=== PATIENT | female | born 1995 | race Caucasian/White ===

== ENCOUNTER 2017-05-22 11:27 | Emergency (ER) | payer SELFPAY ==
[~2017-05-22] VITALS: Ht 160 cm; Wt 68.0 kg
[2017-05-22 11:40] VITALS: BP 113/67
--- NOTE | 2017-05-22 12:07 | PHYS DOC ---
Past Medical History Past Medical History: No Pertinent History Past Surgical History: No Surgical History Alcohol Use: None Drug Use: None Adult General Chief Complaint Chief Complaint: OTHER COMPLAINTS HPI HPI Patient is a 21 year old F who presents with wanting her Mirena checked. Patient states that she's having some vaginal bleeding and concerned that her Mirena might be dislodged. Patient states she's having unprotected intercourse and is a chance she could be . Patient denies any fevers. Patient denies any nausea/vomiting/diarrhea. Patient denies any abdominal pain. Patient has no other complaints. Review of Systems Review of Systems GEN: Denies fevers, chills, sweats HEENT: Denies blurred vision, sore throat CV: Denies chest pain RESP: Denies shortness of air, cough GI: Denies n/v/d : Vaginal bleeding NEURO: Denies confusion, dizziness MSK: Denies weakness, joint pain/swelling Allergies Allergies Allergies Coded Allergies Type Severity Reaction Last Updated Verified No Known Drug Allergies 09/30/14 No Physical Exam Physical Exam GEN.: No apparent distress. Alert and oriented. HEENT: Head is normocephalic, atraumatic NECK: Supple. LUNGS: CTAB. HEART: RRR, S1, S2 present. Peripheral pulses intact ABDOMEN: Soft, nontender. Positive bowel sounds. EXTREMITIES: Without any cyanosis. NEUROLOGIC: Normal speech, normal tone PSYCHIATRIC: Normal affect, normal mood. SKIN: No ulcerations Current Patient Data Vital Signs Vital Signs Date Time Temp Pulse Resp B/P (MAP) Pulse Ox O2 Delivery O2 Flow Rate FiO2 05/22/17 11:40 98.1 111 18 97 Room Air 98.1 Lab Values Laboratory Tests Test 05/22/17 11:38 05/22/17 12:20 POC Urine HCG, Qualitative Hcg negative (Negative) Urine Collection Type Unknown Urine Color Yellow Urine Clarity Cloudy Urine pH 7.0 Urine Specific [place] 1.015 Urine Protein Negative mg/dL (NEG-TRACE) Urine Glucose (UA) Negative mg/dL (NEG) Urine Ketones (Stick) Negative mg/dL (NEG) Urine Blood Negative (NEG) Urine Nitrite Negative (NEG) Urine Bilirubin Negative (NEG) Urine Urobilinogen Dipstick 0.2 mg/dL (0.2 mg/dL) Urine Leukocyte Esterase Large (NEG) Urine RBC 0 /HPF (0-2) Urine WBC >40 /HPF (0-4) Urine Squamous Epithelial Cells Few /LPF Urine Bacteria Few /HPF (0-FEW) Urine Mucus Slight /LPF EKG EKG [] Radiology/Procedures Radiology/Procedures [] Course & Med Decision Making Course & Med Decision Making Pertinent Labs and Imaging studies reviewed. (See chart for details) ED course: 1155: Patient was seen and examined in the emergency room and I had a long discussion with the patient about evaluation of Mirena as an emergency room. Patient states that she's having vaginal bleeding which concerned her that her Mirena is dislodged. Explained to the patient we'll check her urine and check her for . 1244: Patient was reexamined and told that she had a UTI and will treat with antibiotics and was followed recommend she follow up with her MANAGER OF REVENUE for further evaluation and management of her Mirena. MDM: After reviewing the chart, CC/HPI/PMH, physical exam, [lab results], I do not believe the patient has emergent medical condition warranting further workup and /or admission at this time. Patient is stable for discharge. Recommended patient follow-up with MANAGER OF REVENUE for further evaluation of her Mirena and will treat her UTI with oral antibiotics. Additional verbal discharge instructions were provided to the patient and that if symptoms get worse or any new symptoms arise that are worrisome to the patient she is to return to the emergency room immediately [] Dragon Disclaimer Dragon Disclaimer This electronic medical record was generated, in whole or in part, using a voice recognition dictation system. Departure Departure Impression: Primary Impression: Urinary tract infection Disposition: HOME, SELF-CARE Condition: IMPROVED Referrals: NO PCP (PCP) Patient Instructions: Urinary Tract Infection, [id number] Additional Instructions: Please follow up with your AUDIO PRODUCTION INSTRUCTOR for further evaluation and management of your Mirena and please follow up with your family doctor next one to 2 days Scripts Sulfamethoxazole/Trimethoprim (BACTRIM DS TABLET) 1 Each Tablet 1 TAB PO BID for 5 Days, #10 TAB Prov: ROSS ASHLEY DO 05/22/17 ROSS ASHLEY DO May 22, 2017 12:07
[2017-05-22 12:30] LABS: BILIRUBIN,URINE NEGATIVE (NEG); GLUCOSE,URINE NEGATIVE (NEG); NITRITE,URINE NEGATIVE (NEG); PROTEIN,URINE NEGATIVE (NEG-TRACE); UROBILINOGEN,URINE 0.2 mg/dL (0.2 mg/dL)
[2017-05-22 12:40] LABS: BACTERIA,URINE FEW /HPF (0-FEW); RBC,URINE 0 /HPF (0-2); SQUAMOUS EPITHELIAL CELL,UR FEW /LPF; WBC,URINE >40 /HPF (0-4)
[2017-05-22] MEDS ORDERED: SULF1TAB24 PO (12:46)
== END 2017-05-22 12:59 | disposition home or self-care (01) ==
LOC: ER 11:27
DX: N39.0 Urinary tract infection, site not specified (principal); N93.9 Abnormal uterine and vaginal bleeding, unspecified
CPT/HCPCS: 81001; 81025; 87086; 99284

== ENCOUNTER 2018-04-16 16:48 | Emergency (ER) | payer SELFPAY ==
[2018-04-16 17:45] LABS: URINE HCG POC HCG NEGATIVE (Negative)
[2018-04-16 17:49] LABS: BILIRUBIN,URINE NEGATIVE (NEG); CLARITY,URINE CLEAR; COLOR,URINE YELLOW; GLUCOSE,URINE NEGATIVE (NEG); NITRITE,URINE NEGATIVE (NEG); PH,URINE 5.5; PROTEIN,URINE NEGATIVE (NEG-TRACE); UROBILINOGEN,URINE 0.2 mg/dL (0.2 mg/dL)
[2018-04-16 17:56] LABS: BACTERIA,URINE FEW /HPF (0-FEW); SQUAMOUS EPITHELIAL CELL,UR FEW /LPF
[2018-04-16 17:57] LABS: RBC,URINE 0 /HPF (0-2)
[2018-04-16] MEDS: cefTRIAXone IM 250 MG VIAL IM (19:05)
[2018-04-16] MEDS: AZITHROMYCIN 250 MG TABLET. PO (19:06)
[2018-04-20 15:27] LABS: CHLAMYDIA PROBE Negative (Negative); GC PROBE Negative (Negative)
== END 2018-04-16 19:10 | disposition home or self-care (01) ==
LOC: ER 16:48
DX: N76.0 Acute vaginitis (principal); B96.89 Other specified bacterial agents as the cause of diseases classified elsewhere; Z91.018 Allergy to other foods
CPT/HCPCS: 81001; 81025; 87491; 87591; 96372; 99284; J0696; Q0111; Q0144

== ENCOUNTER 2018-11-11 16:44 | Emergency (ER) | payer BC ==
[~2018-11-11] VITALS: Ht 160 cm; Wt 74.8 kg
[~2018-11-11 16:44] MED LIST: METR500T PO; SULF1TAB24 PO
[2018-11-11 18:00] VITALS: BP 107/64
--- NOTE | 2018-11-11 18:20 | PHYS DOC ---
Past Medical History Past Medical History: No Pertinent History (RAMSES PENNY APRN) Past Surgical History: No Surgical History (RAMSES PENNY APRN) Alcohol Use: None Drug Use: None (RAMSES PENNY APRN) Adult General Chief Complaint Chief Complaint: SORE THROAT HPI HPI Patient is a 23 year old female who presents to the emergency room with complaints of a sore throat, nasal congestion, postnasal drainage, frequent throat clearing, and dry cough since yesterday. Patient denies any measured fever, rash, nausea, vomiting, diarrhea, abdominal pain, shortness of breath, or wheezing. Patient states she is a infrequent smoker. She denies any medical history. (RAMSES PENNY APRN) Review of Systems Review of Systems Constitutional: Denies fever or chills [] Eyes: Denies change in visual acuity, redness, or eye pain [] HENT: See history of present illness Respiratory: Denies wheezing or shortness of breath ; See HPI Cardiovascular: No additional information not addressed in HPI [] GI: Denies abdominal pain, nausea, vomiting, or diarrhea [] Musculoskeletal: Denies back pain or joint pain [] Integument: Denies rash or skin lesions [] Neurologic: Denies headache, focal weakness or sensory changes [] (RAMSES PENNY APRN) Allergies Allergies Allergies Coded Allergies Type Severity Reaction Last Updated Verified coconut Allergy Intermediate diarrhea 04/16/18 Yes (HOMER CASEY DO) Physical Exam Physical Exam Constitutional: Well developed, well nourished, no acute distress, non-toxic appearance. [] HENT: Normocephalic, atraumatic, bilateral external ears normal, bilateral TMs normal, cobblestone appearance of posterior pharynx without erythema, oropharynx moist, no oral exudates, erythema and edema of bilateral nasal turbinates. Eyes: conjunctiva normal, no discharge. [] Neck: Normal range of motion, no tenderness, supple, no stridor. [] Cardiovascular:Heart rate regular rhythm, no murmur [] Lungs & Thorax: Bilateral breath sounds clear to auscultation [] Skin: Warm, dry, no erythema, no rash. [] Extremities: No cyanosis, no clubbing, ROM intact Neurologic: Alert and oriented X 3, normal motor function, normal sensory function, no focal deficits noted. [] Psychologic: Affect normal, judgement normal, mood normal. [] (RAMSES PENNY APRN) Current Patient Data Vital Signs Vital Signs Date Time Temp Pulse Resp B/P (MAP) Pulse Ox O2 Delivery O2 Flow Rate FiO2 11/11/18 18:00 98.2 91 16 107/64 (78) 98 Room Air 98.2 (HOMER CASEY DO) EKG EKG [] (RAMSES PENNY APRN) Radiology/Procedures Radiology/Procedures [] (RAMSES PENNY APRN) Course & Med Decision Making Course & Med Decision Making Pertinent Labs and Imaging studies reviewed. (See chart for details) [] (RAMSES PENNY APRN) Dragon Disclaimer Dragon Disclaimer This electronic medical record was generated, in whole or in part, using a voice recognition dictation system. (RAMSES PENNY APRN) Departure Departure Impression: Primary Impression: URI with cough and congestion Additional Impression: Pharyngitis, acute Disposition: 01 HOME, SELF-CARE Condition: STABLE Referrals: NO PCP (PCP) Patient Instructions: Upper Respiratory Infection, Adult, [id number], Viral and Bacterial Pharyngitis, [id number] Additional Instructions: Recommend use of a Cool mist humidifier in room at bedtime. Alternate Tylenol or ibuprofen as needed for pain/fever. Recommend [id number] Flonase nasal spray, 2 sprays in each side of nose once a day. Increase clear fluids. Avoid airway triggers such as smoke, fragrance, dust, and pollen. May take over-the- counter cough suppressants as needed. Follow-up with your primary care doctor if symptoms persist, return to the ER if symptoms worsen. Attending Signature Attending Signature I have reviewed the PA/DIE HARDENER's note and plan of care. I was available for consultation as needed during the patient's visit in the emergency department. I agree with the clinical impression, plan, and disposition. (HOMER CASEY DO) Problem Qualifiers Additional Impression: Pharyngitis, acute Pharyngitis/tonsillitis etiology: unspecified etiology Qualified Codes: J02.9 - Acute pharyngitis, unspecified RAMSES PENNY APRN Nov 11, 2018 18:20 HOMER CASEY DO Nov 16, 2018 17:07
== END 2018-11-11 18:24 | disposition home or self-care (01) ==
LOC: ER 16:44
DX: J02.9 Acute pharyngitis, unspecified (principal); J06.9 Acute upper respiratory infection, unspecified; Z91.018 Allergy to other foods
CPT/HCPCS: 99281

== ENCOUNTER 2019-10-22 16:30 | Emergency (ER) | payer SELFPAY ==
[~2019-10-22] VITALS: Ht 160 cm; Wt 81.8 kg
[2019-10-22 17:57] VITALS: BP 130/76
--- NOTE | 2019-10-22 18:27 | PHYS DOC ---
Past Medical History Past Medical History: No Pertinent History (HOMER BOUDREAUX APRN) Past Surgical History: No Surgical History (HOMER BOUDREAUX APRN) Alcohol Use: None Drug Use: None (HOMER BOUDREAUX APRN) Attending Signature I have participated in the care of this patient and I have reviewed and agree with all pertinent clinical information above including history, exam, and recommendations. (SOILA SANCHEZ MD) Adult General Chief Complaint Chief Complaint: VAGINAL PROBLEM [facility] HPI Patient is a 24 year old female who presents with vaginal discharge this been ongoing for several months. Patient states she's been diagnosed with bacterial vaginosis multiple times. It has not gotten better. She denies follow up with primary care doctor or ENGRAVER [employer]. Patient states she has been trying yogurt and probiotics. Denies any additional symptoms. Complete ROS were reviewed and found to be within normal limits, except as documented in the HPI (HOMER BOUDREAUX APRN) Allergies Allergies Allergies Coded Allergies Type Severity Reaction Last Updated Verified coconut Allergy Intermediate diarrhea 04/16/18 Yes (SOILA SANCHEZ MD) Physical Exam Physical Exam Constitutional: Well developed, well nourished, no acute distress, non-toxic appearance. [] HENT: Normocephalic, atraumatic, bilateral external ears normal, oropharynx moist, no oral exudates, nose normal. [] Neurologic: Alert and oriented X 3, normal motor function, normal sensory function, no focal deficits noted. [] Psychologic: Affect normal, judgement normal, mood normal. [] (HOMER BOUDREAUX APRN) Current Patient Data Vital Signs Vital Signs Date Time Temp Pulse Resp B/P (MAP) Pulse Ox O2 Delivery O2 Flow Rate FiO2 10/22/19 17:57 98.4 75 16 130/76 (94) 97 Room Air 98.4 (SOILA SANCHEZ MD) EKG EKG [] (HOMER BOUDREAUX APRN) Radiology/Procedures Radiology/Procedures [] (HOMER BOUDREAUX APRN) Course & Med Decision Making Course & Med Decision Making Pertinent Labs and Imaging studies reviewed. (See chart for details) Patient states that she needs to leave. A medical screening exam was performed on this patient and the patient does not appear to be having a medical emergency. Her symptoms are not of sufficient severity and within reasonable medical probability it is unlikely the absence of immediate medical attention would result in placing the health of the individual (or, with respect to a woman, the health of the woman or her unborn child) in serious jeopardy, serious impairment to bodily functions, or serious dysfunction of any bodily organ or part. If , the patient is not in labor (HOMER BOUDREAUX APRN) Dragon Disclaimer Dragon Disclaimer This electronic medical record was generated, in whole or in part, using a voice recognition dictation system. (HOMER BOUDREAUX APRN) Departure Departure Impression: Primary Impression: Vaginal discharge Additional Impression: Encounter for medical screening examination Disposition: HOME, SELF-CARE Condition: STABLE Referrals: NO PCP (PCP) Patient Instructions: Medical Screening Exam Additional Instructions: Thank you for visiting [facility]. We appreciate you trusting us with your care. If any additional problems come up don't hesitate to return to visit us. Please follow up with your primary care provider so they can plan additional care if needed and know about the problem that you had. If symptoms worsen come back to the Emergency Department. Any concerning symptoms that start such as chest pain, shortness of air, weakness or numbness on one side of the body, running high fevers or any other concerning symptoms return to the ER. Problem Qualifiers HOMER BOUDREAUX APRN Oct 22, 2019 18:27 SOILA SANCHEZ MD Oct 23, 2019 03:42
== END 2019-10-22 18:47 | disposition home or self-care (01) ==
LOC: ER 16:30
DX: N89.8 Other specified noninflammatory disorders of vagina (principal); Z91.018 Allergy to other foods
CPT/HCPCS: 99281

== ENCOUNTER 2021-03-21 19:25 | Emergency (ER) | payer SELFPAY ==
[~2021-03-21] VITALS: Ht 157.5 cm; Wt 95.4 kg
[2021-03-21 20:27] LABS: BILIRUBIN,URINE NEGATIVE (NEG); CLARITY,URINE CLEAR; COLOR,URINE YELLOW; NITRITE,URINE NEGATIVE (NEG); PH,URINE 7.5 (<5.0-8.0); PROTEIN,URINE NEGATIVE (NEG-TRACE)
[2021-03-21 20:44] LABS: BACTERIA,URINE FEW /HPF (0-FEW); RBC,URINE 0 /HPF (0-2); WBC,URINE RARE /HPF (0-4)
[2021-03-21] MEDS ORDERED: DOXYCYCLINE HYCLATE 100 MG TABLET PO ONE (22:00)
[2021-03-21] MEDS ORDERED: metroNIDAZOLE 500 MG TABLET PO ONE (22:00)
[2021-03-21] MEDS ORDERED: cefTRIAXone IM 500 MG VIAL. IM ONE (22:00)
[2021-03-21] MEDS ORDERED: DOXY100T PO (22:07)
--- NOTE | 2021-03-21 22:08 | PHYS DOC ---
Past Medical History Past Medical History: No Pertinent History Past Surgical History: No Surgical History Smoking Status: Never Smoker Alcohol Use: None Drug Use: None General Adult EDM: Chief Complaint: ABDOMINAL PAIN HPI: HPI: Patient is a 25 year old female who presents to the ED today complaining of mil d left pelvic pain with vaginal discharge, symptoms began 2 days ago. Patient states she is concerned about STDs because she has a new sex partner. Denies any chance she is . Denies anything specifically exacerbating or relieving her pain. Review of Systems: Review of Systems: Constitutional: Denies fever or chills. [] GI: Reports left pelvic pain and vaginal discharge, denies nausea, vomiting, bloody stools or diarrhea. [] : Denies dysuria. [] Musculoskeletal: Denies back pain or joint pain. [] Integument: Denies rash. [] Neurologic: Denies headache, focal weakness or sensory changes. [] Psychiatric: Denies depression or anxiety. [] Heart Score: C/O Chest Pain: N/A Risk Factors: Risk Factors: DM, Current or recent (<one month) smoker, HTN, HLP, family his tory of CAD, obesity. Risk Scores: Score 0 - 3: 2.5% MACE over next 6 weeks - Discharge Home Score 4 - 6: 20.3% MACE over next 6 weeks - Admit for Clinical Observation Score 7 - 10: 72.7% MACE over next 6 weeks - Early Invasive Strategies Current Medications: Current Medications Medications (Trade) Dose Ordered Sig/Jj Start Time Stop Time Status Last Admin Dose Admin Ceftriaxone Sodium (Rocephin Im) 500 mg 1X ONCE 03/21/21 22:00 03/21/21 22:01 DC 03/21/21 21:37 500 MG Doxycycline Hyclate (Vibra-Tab) 100 mg 1X ONCE 03/21/21 22:00 03/21/21 22:01 DC 03/21/21 21:37 100 MG Metronidazole (Flagyl) 2,000 mg 1X ONCE 03/21/21 22:00 03/21/21 22:01 DC 03/21/21 21:37 2,000 MG Allergies: Allergies: Allergies Coded Allergies Type Severity Reaction Last Updated Verified coconut Allergy Intermediate diarrhea 04/16/18 Yes Physical Exam: PE: Constitutional: Well developed, well nourished, no acute distress, non-toxic appearance. [] Abdomen: Bowel sounds normal, soft, no tenderness, no masses, no pulsatile masses. [] Pelvic exam External pelvic appears normal, cervix is visualized, closed, no CMT, no adnexal tenderness, small amount of yellow discharge in the vaginal vault Skin: Warm, dry, no erythema, no rash. [] Back: No tenderness, no CVA tenderness. [] Extremities: No tenderness, no cyanosis, no clubbing, ROM intact, no edema. [] Neurologic: Alert and oriented X 3, normal motor function, normal sensory function, no focal deficits noted. [] Psychologic: Affect normal, judgement normal, mood normal. [] Current Patient Data: Labs: Laboratory Tests Test 03/21/21 19:59 03/21/21 20:02 Urine Collection Type Unknown Urine Color Yellow Urine Clarity Clear Urine pH 7.5 (<5.0-8.0) Urine Specific [place] 1.025 (1.000-1.030) Urine Protein Negative mg/dL (NEG-TRACE) Urine Glucose (UA) Negative mg/dL (NEG) Urine Ketones (Stick) Negative mg/dL (NEG) Urine Blood Negative (NEG) Urine Nitrite Negative (NEG) Urine Bilirubin Negative (NEG) Urine Urobilinogen Dipstick 1.0 mg/dL (0.2 mg/dL) Urine Leukocyte Esterase Negative (NEG) Urine RBC 0 /HPF (0-2) Urine WBC Rare /HPF (0-4) Urine Squamous Epithelial Cells Few /LPF Urine Bacteria Few /HPF (0-FEW) Urine Mucus Mod /LPF POC Urine HCG, Qualitative Hcg negative (Negative) Microbiology 03/21/21 Wet Prep - Final, Complete Vital Signs: Vital Signs Date Time Temp Pulse Resp B/P (MAP) Pulse Ox O2 Delivery O2 Flow Rate FiO2 03/21/21 20:28 98.5 79 115/70 (85) 98 98.5 03/21/21 20:22 18 Room Air EKG: EKG: [] Radiology/Procedures: Radiology/Procedures: [] Course & Med Decision Making: Course & Med Decision Making Pertinent Labs and Imaging studies reviewed. (See chart for details) This is a 25-year-old female patient presenting to the ED today with vaginal discharge and pelvic pain and concerned she could have an STD and requested treatment. Negative urine hCG, UA negative for infection, wet prep noted for altered naomi suggestive of bacterial vaginosis but no clue cells. Patient was given the new standard STD treatment in the ED including Rocephin and doxycycline, Rx for doxycycline also sent home with her. Follow-up with her PCP in 1 to 2 weeks. STD education provided. Alexandr Disclaimer: Alexandr Disclaimer: This electronic medical record was generated, in whole or in part, using a voice recognition dictation system. Departure Departure Impression: Primary Impression: Concern about sexually transmitted disease in female without diagnosis Disposition: 01 HOME / SELF CARE / HOMELESS Condition: STABLE Referrals: NO PCP (PCP) Follow-up with your own doctor or the health department Patient Instructions: Sexually Transmitted Disease, [id number] Additional Instructions: You were treated for sexually transmitted diseases in the emergency room. Please complete the rest of the doxycycline. Use protection at all times. Abstain from sex for 1 week. Please let your partner know you were treated for STDs and asked him to seek treatment. Scripts Doxycycline Hyclate (DOXYCYCLINE HYCLATE) 100 Mg Tablet 1 TAB PO BID, #14 TAB Prov: SILVIA KOHLER APRN 03/21/21 SILVIA KOHLER APRN Mar 21, 2021 22:08
[2021-03-21 22:20] VITALS: BP 123/78
[2021-03-23 18:14] LABS: GC PROBE Negative (Negative)
== END 2021-03-21 22:20 | disposition home or self-care (01) ==
LOC: ER 19:25
DX: R10.2 Pelvic and perineal pain (principal); Z20.2 Contact with and (suspected) exposure to infections with a predominantly sexual mode of transmission; N89.8 Other specified noninflammatory disorders of vagina; Z91.018 Allergy to other foods
CPT/HCPCS: 81001; 81025; 87491; 87591; 96372; 99284; J0696; Q0111; 99283

== ENCOUNTER 2021-06-11 21:38 | Emergency (ER) | payer SELFPAY ==
[~2021-06-11 21:38] MED LIST changes: +DOXY100T PO
[2021-06-11 22:58] LABS: BILIRUBIN,URINE NEGATIVE (NEG); CLARITY,URINE CLEAR; COLOR,URINE YELLOW; NITRITE,URINE NEGATIVE (NEG); PH,URINE 7.5 (<5.0-8.0); PROTEIN,URINE NEGATIVE (NEG-TRACE)
[2021-06-11 23:16] LABS: BACTERIA,URINE FEW /HPF (0-FEW); RBC,URINE RARE /HPF (0-2)
== END 2021-06-11 22:48 | disposition left against medical advice (07) ==
LOC: ER 21:38
DX: N89.8 Other specified noninflammatory disorders of vagina (principal); Z53.21 Procedure and treatment not carried out due to patient leaving prior to being seen by health care provider
CPT/HCPCS: 81001; 81025